=== PATIENT | male | born 1985 | race Two or more races ===

== ENCOUNTER 2017-07-23 11:08 | Emergency (ER) | payer OTHER ==
[~2017-07-23] VITALS: Ht 172.7 cm; Wt 72.6 kg
[2017-07-23 11:10] VITALS: BP 147/99
== END 2017-07-23 11:35 ==
LOC: ER 11:09
DX: Z00.00 Encounter for general adult medical examination without abnormal findings (principal); F17.200 Nicotine dependence, unspecified, uncomplicated
CPT/HCPCS: A4606; Z7610